=== PATIENT | female | born 1995 | race African-American/Black ===

== ENCOUNTER 2020-01-29 05:05 | Emergency (ER) | payer OTHER, SELFPAY ==
--- NOTE | ~2020-01-29 | CT_ITS ---
EXAMINATION: CT abdomen pelvis w con DATE: 01/29/2020 06:24 INDICATION: Abdomen pain and nausea TECHNIQUE: Computed tomography (CT) of the abdomen and pelvis was performed with 100 cc Omnipaque 350 intravenous contrast. The dose-length product was 266.29 mGy-cm. Automated exposure control and iter ative reconstruction technique were employed. COMPARISON: None. FINDINGS: Lung bases unremarkable. Heart size normal. No significant pleural or pericardial effusion. Patchy hypoperfusion of the kidneys, suspicious for pyelonephritis. Nonobstructive bowel gas pattern . 3.8 cm cystic lesion left adnexa, likely ovarian. Consider correlation with ultrasound. Bladder wal l is mildly prominent, possibly due to underdistention, cystitis should be considered in the appropri ate clinical setting. The liver, spleen, pancreas, adrenal glands and kidneys are unremarkable. Gallbladder is present. IMPRESSION: 1. Patchy hypoperfusion of the kidneys, suspicious for pyelonephritis. Possible cystitis. Consider co rrelation with urinalysis. 2: 3.8 cm left adnexal cyst, likely ovarian. Consider correlation with ultrasound. Reviewed, dictated and finalized at location A. IMPRESSION: 1. Patchy hypoperfusion of the kidneys, suspicious for pyelonephritis. Possible cystitis. Consider correlation with urinalysis. 2: 3.8 cm left adnexal cyst, likely ovarian. Consider correlation with ultraso und.
[2020-01-29 05:10] VITALS: BP 108/63; PULSE 98; RESP 18; TEMP 37.3; O2SAT 95
--- NOTE | 2020-01-29 05:10 | ED.ABDPAIN ---
HPI - Abdominal Pain General Chief Complaint: Back Pain/Injury <Kike Rivera MD - Last Filed: 01/29/20 19:04> Stated Complaint: Flank pain <Kike Rivera MD - Last Filed: 01/29/20 19:04> Time Seen by Provider: 01/29/20 05:07 <Kike Rivera MD - Last Filed: 01/29/20 19:04> History of Present Illness HPI narrative: Pain in the right flank radiating into the RUQ since yesterday. Initially tolrable. Awoke her from sleep early this morning more severe. No associated with nausea. Made worse by everything. Better with nothing. <Kike Rivera MD - Last Filed: 01/29/20 19:04> Related Data Allergies/Adverse Reactions: Allergies Allergy/AdvReac Type Severity Reaction Status Date / Time tetrahydrozoline Allergy Mild Unknown Verified 01/29/20 05:22 zinc Allergy Unknown Unknown Verified 01/29/20 05:22 <Kike Rivera MD - Last Filed: 01/29/20 19:04> Review of Systems Review of Systems: All systems reviewed & are unremarkable except as noted in HPI and below <Kike Rivera MD - Last Filed: 01/29/20 19:04> Constitutional: Constitutional: Denies fever(s) <Kike Rivera MD - Last Filed: 01/29/20 19:04> Cardiovascular: Cardiovascular: Denies chest pain <Kike Rivera MD - Last Filed: 01/29/20 19:04> Respiratory: Respiratory: Denies dyspnea <Kike Rivera MD - Last Filed: 01/29/20 19:04> Gastrointestinal: Gastrointestinal: Reports abdominal pain, Denies constipation, Denies diarrhea and Reports nausea <Kike Rivera MD - Last Filed: 01/29/20 19:04> Genitourinary: Genitourinary: Denies hematuria, Denies nocturia and Denies dysuria <Kike Rivera MD - Last Filed: 01/29/20 19:04> Musculoskeletal: Musculoskeletal: Reports back pain <Kike Rivera MD - Last Filed: 01/29/20 19:04> Neurologic: Denies numbness and Denies weakness <Kike Rivera MD - Last Filed: 01/29/20 19:04> [facility] Past Medical History Medical History: Medical History cardiomyopathy <Kike Rivera MD - Last Filed: 01/29/20 19:04> Surgical History Surgical History: Surgical History No history of previous surgery <Kike Rivera MD - Last Filed: 01/29/20 19:04> Social History Social History: Social History Smoking packs per day: 0.5 Smoking cigarettes per day: 10.0 Smoking status: Current every day smoker Tobacco type: cigarettes Gender identity (if verbalized by the patient): Female <Kike Rivera MD - Last Filed: 01/29/20 19:04> Exam Const: General: healthy appearing, no acute distress and alert <Kike Rivera MD - Last Filed: 01/29/20 19:04> Orientation/consciousness: patient oriented x3 <Kike Rivera MD - Last Filed: 01/29/20 19:04> HENMT: Head: normal to inspection <Kike Rivera MD - Last Filed: 01/29/20 19:04> Neck: Neck: normal visual inspection and no lymphadenopathy <Kike Rivera MD - Last Filed: 01/29/20 19:04> Chest: Chest palpation & inspection: no tenderness <Kike Rivera MD - Last Filed: 01/29/20 19:04> Resp: Effort & Inspection: normal respiratory effort <Kike Rivera MD - Last Filed: 01/29/20 19:04> Auscultation: clear to auscultation bilaterally, no rales, no rhonchi and no wheezes <Kike Rivera MD - Last Filed: 01/29/20 19:04> Cardio: Jugular venous distension: no JVD <Kike Rivera MD - Last Filed: 01/29/20 19:04> Rate: regular rate <Kike Rivera MD - Last Filed: 01/29/20 19:04> Rhythm: regular rhythm <Kike Rivera MD - Last Filed: 01/29/20 19:04> Heart sounds: no murmurs <Kike Rivera MD - Last Filed: 01/29/20 19:04> GI: Inspection: non-distended <Kike Rivera MD - Last Filed: 01/29/20 19:04> GI Palp: Yes
[2020-01-29 05:49] LABS: Basophils Percent Auto 0.2 % (0.2-1.2); Eosinophils Absolute Auto 0.1 K/mm3 (0-0.3); Eosinophils Percent Auto 0.4 % (0-4.4); Hematocrit 33.7 % (37.0-47.0); Hemoglobin 11.1 g/dL (12.0-15.0); Immature Granulocyte Absolute 0.05 K/mm3 (0.00-0.031); Immature Granulocyte Percent A 0.4 % (0-0.5); Lymphocytes Absolute Auto 1.18 K/mm3 (0.9-3.2); Lymphocytes Percent Auto 9.6 % (18.3-44.2); Mean Corpuscular HGB Conc 32.9 g/dl (32-36); Mean Corpuscular Hemoglobin 26.6 pg (26-34); Mean Corpuscular Volume 80.6 fl (80-100); Mean Platelet Volume 11.1 fl (7.4-10.4); Monocytes Absolute Auto 0.2 K/mm3 (0.1-0.6); Monocytes Percent Auto 1.6 % (2.6-8.5); Neutrophils Absolute Auto 10.8 K/mm3 (1.3-6.7); Neutrophils Percent Auto 87.8 % (45.5-73.1); Platelet Count Result 261 k/mm3 (150-375); Red Blood Count 4.18 M/mm3 (4.2-5.4); Red Cell Distribution Width 15.7 % (11.5-14.5); White Blood Count 12.3 K/mm3 (4.5-10.0)
[2020-01-29 05:56] LABS: Add Urine Microscopic? YES; Appearance Urine Cloudy (Clear); Bacteria Urine 2+ /hpf; Bilirubin Urine Negative (Negative); Blood Urine 2+ (Negative); Color Urine Yellow (Yellow); Glucose Urine UA Negative (Negative); Ketones Urine Negative (Negative); Leukocyte Esterase Ur 3+ LEU/UL (Negative); Mucus Urine Few /lpf; Nitrate Urine Positive (Negative); Protein Urine 2+ mg/dL (Negative); Specific Grav Ur 1.013 (1.001-1.035); Urobilinogen Urine Negative mg/dL (<2.0); WBC Clumps Urine Present /HPF; WBC Urine >75 /hpf
[2020-01-29] MEDS: SODIUM CHLORIDE 0.9% IV 1,000 ML 999 ML IV CONT (05:56)
[2020-01-29] MEDS: ONDANSETRON INJ 4 MG/2 ML VIAL IV PUSH (05:57)
[2020-01-29] MEDS: KETOROLAC 30 MG/ML VIAL (*BKC) IV PUSH (05:57)
[2020-01-29 06:04] LABS: Alanine Aminotransferase 13 U/L (4-35); Albumin Level 3.9 g/dL (3.5-5.1); Alkaline Phosphatase 56 U/L (38-126); Anion Gap 7 mmol/L (8-16); Aspartate Amino Transferase 16 U/L (14-36); Bilirubin,Total 0.4 mg/dL (0.2-1.3); Blood Urea Nitrogen 12 mg/dL (7-17); Calcium 8.7 mg/dL (8.4-10.2); Carbon Dioxide 24 mmol/L (22-30); Chloride 106 mmol/L (98-107); Estimated CRCL calculation 66 ml/min; Estimated Glomerular Filt Rate > 60; Glucose 93 mg/dL (65-105); Lipase 34 U/L (23-300); Potassium 3.7 mmol/L (3.4-5.0); Sodium 137 mmol/L (137-145)
--- NOTE | 2020-01-29 06:12 | PC.NURSE ---
Patient being taken to CT.
[2020-01-29 09:16] VITALS: BP 98/53; PULSE 64; RESP 18; O2SAT 100
== END 2020-01-29 09:17 | disposition home or self-care (01) ==
PROVIDERS: Emergency Medicine; Emergency Provider Family Medicine
DX: N12 Tubulo-interstitial nephritis, not specified as acute or chronic (principal); F17.210 Nicotine dependence, cigarettes, uncomplicated; N94.89 Other specified conditions associated with female genital organs and menstrual cycle
CPT/HCPCS: 36415; 74177; 80053; 81001; 81025; 83690; 85025; 87077; 87086; 87088; 87186; 96365; 96375; 99284; J0696; J1885; J2405; J7030; Q9967